=== PATIENT | female | born 1980 | race Two or more races ===

== ENCOUNTER → 2025-09-22 | Outpatient (CLI) | payer MEDICAID, SELFPAY ==
--- NOTE | 2025-09-22 09:39 | XR_ITS ---
Examination: Abdomen sonogram, complete Date and time of exam: September 22, 2025, 0939 hours INDICATIONS: Right upper abdominal pain beginning 3 years ago. Technique: Multiple real-time grayscale transabdominal sonographic images of the abdomen have been obtained. Findings: 20 mm gallstone Gallbladder wall borderline thickened 0.42 cm no edema Common bile duct 0.3 cm Pancreatic head 2.0 cm Aorta not enlarged. Liver 15.7 cm smooth contour no focal liver lesions Normal hepatopetal portal venous flow Patent IVC Right kidney 12.0 cm renal cortex 1.3 cm Left kidney 10.9 cm renal cortex 2.7 cm Spleen 7.7 cm IMPRESSION: Cholelithiasis, borderline thickening gallbladder wall, consider HIDA scan or MRCP follow-up to exclude cholecystitis, as clinically warranted
== END | disposition home or self-care (01) ==
PROVIDERS: PCP Physician Assistant; Referring Provider Physician Assistant; Visit Provider Physician Assistant
DX: K80.20 Calculus of gallbladder without cholecystitis without obstruction (principal); K82.8 Other specified diseases of gallbladder
CPT/HCPCS: 76700